=== PATIENT | male | born 1955 | race Caucasian/White ===

== ENCOUNTER → 2016-07-27 | Outpatient (CLI) | payer MEDICARE ==
--- NOTE | 2016-07-27 14:36 | US ---
History: Chronic DVT. Left lower extremity venous Doppler: Linear transducer exam confirms normal compression, color Doppler fill-in and augmentation in the common femoral, superficial femoral and popliteal veins. IMPRESSION: No sonographic evidence suggestive of deep venous thrombus in the left lower extremity. Electronically signed by: Lilliam Kurtz MD 07/27/2016 2:35 PM CDT Workstation: [id number]
== END | disposition home or self-care (01) ==
LOC: US 09:13
PROVIDERS: ATTEND Family Medicine
DX: R60.0 Localized edema (principal); I82.509 Chronic embolism and thrombosis of unspecified deep veins of unspecified lower extremity

== ENCOUNTER → 2016-08-11 | Outpatient (CLI) | payer MEDICARE ==
--- NOTE | 2016-08-12 14:35 | US ---
EXAM DESCRIPTION: Extremity,Lower LT Arteries CLINICAL HISTORY: 60 years Male, EDEMA COMPARISON: None. TECHNIQUE: Grayscale, color Doppler, and spectral pulse Doppler evaluation of the left lower extremity arterial system. FINDINGS: Duplex examination from the inguinal region to the level of the ankle was obtained. Visually very little atherosclerosis is evident within the arterial system with normal velocities and triphasic waveforms at the common femoral and in multiple locations along the superficial femoral artery and popliteal artery with no evidence of inflow disease or significant stenosis. Velocities range from approximately 70 to 92 cm/s. Below the knee a phasic wave pattern is present with mildly diminished velocities suggesting there may be an element of trifurcation small vessel disease below the popliteal fossa. Peroneal artery distally is biphasic with velocity of 50.4 cm/s. Posterior tibial artery demonstrates biphasic flow at 53 cm/s. The dorsalis pedis artery in the foot is biphasic at 33 cm/s. IMPRESSION: Essentially normal examination with normal velocities and triphasic waveforms to the popliteal fossa with mildly diminished velocities and biphasic wave pattern suggesting an element of atherosclerosis of the trifurcation region below the knee. Electronically signed by: Josse Ramirez MD 08/12/2016 2:35 PM CDT
== END | disposition home or self-care (01) ==
LOC: US 08:57
PROVIDERS: ATTEND Family Medicine
DX: R60.0 Localized edema (principal)